=== PATIENT | male | born 2000 | race Caucasian/White ===

== ENCOUNTER 2022-01-09 11:31 | Outpatient (CLI) | payer OTHER, SELFPAY ==
--- NOTE | 2022-01-09 11:42 | XR_ITS ---
WS: [id number] Exam: XR chest 2V* [id number] Date/Time of Exam: 01/09/2022 11:56 AM Reason For Exam: DIARRHEA/FEVER/ACUTE PHARYNGITIS No priors. Findings: The lungs are clear and fully expanded. Costophrenic angles are sharp. No infiltrates. Bronchovascula r relief appears normal. Cardiac silhouette is unremarkable. Bony elements are intact. XR/XR chest 2V* [id number] IMPRESSION: Unremarkable chest radiograph.
== END 2022-01-09 11:32 | disposition home or self-care (01) ==
LOC: RAD 11:38
PROVIDERS: PCP Electrodiagnostic Medicine; Visit Provider Electrodiagnostic Medicine
DX: R19.7 Diarrhea, unspecified (principal); R50.9 Fever, unspecified; J02.9 Acute pharyngitis, unspecified
CPT/HCPCS: 71046